=== PATIENT | female | born 1940 | race Caucasian/White ===

== ENCOUNTER 2017-11-26 08:30 | Outpatient (CLI) | payer MEDICARE, OTHER ==
[~2017-11-26] VITALS: Ht 154.9 cm; Wt 56.7 kg
[~2017-11-26 08:30] MED LIST: CEPH-38 PO; DCS100C PO; FOSAMAX; HYDR1TAB PO; MELO-195 PO; OMG1KC; SYNTHROID; VITA1CAP42
[2017-11-26] MEDS ORDERED: CHOL500050 PO (08:52)
== END 2017-11-26 10:02 ==
LOC: PREOP 08:30
PROVIDERS: ATTEND Surgery
DX: Z01.818 Encounter for other preprocedural examination (principal)